=== PATIENT | female | born 1955 | race Caucasian/White ===

== ENCOUNTER 2020-11-16 11:55 | Emergency (ER) | payer MEDICARE, OTHER ==
[~2020-11-16 11:55] MED LIST: ADVAIR 250-501 EACH INH; ALDACTONE25 MG PO; AMOXICILLIN500 MG PO; AZITHROMYCIN250 MG PO; CERTAGEN1 EACH PO; MAG-OXIDE 400M400 MG PO; MUCINEX 600MG600 MG PO; NEXIUM40 MG PO; NORCO 5-325 TA1 EACH PO; PERCOCET 10/321 EACH PO; PROZAC20 MG PO; TOPROL XL 25MG25 MG PO; TRAZODONE 100M100 MG PO; XANAX1 MG PO
[2020-11-16 13:48] LABS: BASOPHIL 0.7 % (0-2); EOSINOPHIL 1.7 % (0-7); HCT 36.3 % (37.0-47.0); HGB 11.6 g/dl (12.5-16.0); LYMPHOCYTE 12.5 % (15-48); MCH 30.4 pg (25.0-31.0); MONOCYTE 10.1 % (0-12); MPV 10.2 fL (6.0-9.5); NEUTROPHIL 74.7 % (41-80); NRBC 0; PLT 241 K/uL (150-400); RBC 3.82 M/uL (4.20-5.40); RDW 13.8 % (11.5-14.0); WBC 9.2 K/uL (4.0-10.5)
[2020-11-16 14:01] LABS: INR 1.02 (0.9-1.2); PROTHROMBIN TIME 12.7 SECONDS (11.4-13.6); PTT 26.6 SECONDS (22.2-34.7)
[2020-11-16 14:14] LABS: ALBUMIN 3.8 g/dL (3.4-5.0); BILIRUBIN - TOTAL 0.8 mg/dL (0.2-1.0); BUN/CREAT RATIO (CALC) 14.3 RATIO; CREATININE 0.91 mg/dL (0.51-0.95); POTASSIUM 4.7 mmol/L (3.5-5.1); TOTAL PROTEIN 7.8 g/dL (6.4-8.2)
== END 2020-11-16 14:23 | disposition home or self-care (01) ==
LOC: FER 11:55
PROVIDERS: Emergency Medicine
DX: L76.32 Postprocedural hematoma of skin and subcutaneous tissue following other procedure (principal); I10 Essential (primary) hypertension; J44.9 Chronic obstructive pulmonary disease, unspecified; Z88.2 Allergy status to sulfonamides; Z88.1 Allergy status to other antibiotic agents; Z88.8 Allergy status to other drugs, medicaments and biological substances; Y83.8 Other surgical procedures as the cause of abnormal reaction of the patient, or of later complication, without mention of misadventure at the time of the procedure; Z98.890 Other specified postprocedural states; M79.651 Pain in right thigh
CPT/HCPCS: 36415; 80053; 85025; 85610; 85730; 93971; J1170; J2550

== ENCOUNTER 2021-01-24 15:32 | Emergency (ER) | payer MEDICARE, OTHER ==
[2021-01-24 17:08] LABS: BASOPHIL 0.8 % (0-2); EOSINOPHIL 3.1 % (0-7); HCT 35.6 % (37.0-47.0); HGB 11.3 g/dl (12.5-16.0); LYMPHOCYTE 14.1 % (15-48); MCH 30.1 pg (25.0-31.0); MCHC 31.7 g/dL (32.0-36.0); MCV 94.9 fL (78.0-100.0); MPV 10.3 fL (6.0-9.5); NEUTROPHIL 70.5 % (41-80); NRBC 0; PLT 225 K/uL (150-400); RBC 3.75 M/uL (4.20-5.40); RDW 13.7 % (11.5-14.0); WBC 6.5 K/uL (4.0-10.5)
[2021-01-24 17:14] LABS: INR 0.96 (0.9-1.2); PROTHROMBIN TIME 12.1 SECONDS (11.4-13.6)
[2021-01-24 17:22] LABS: ALBUMIN 3.5 g/dL (3.4-5.0); BILIRUBIN - TOTAL 0.3 mg/dL (0.2-1.0); BUN/CREAT RATIO (CALC) 9.1 RATIO; CREATININE 0.99 mg/dL (0.51-0.95); POTASSIUM 4.3 mmol/L (3.5-5.1); TOTAL PROTEIN 6.5 g/dL (6.4-8.2)
== END 2021-01-24 21:08 | disposition other institution (70) ==
LOC: FER 15:32
PROVIDERS: Emergency Medicine
DX: I63.9 Cerebral infarction, unspecified (principal); R29.810 Facial weakness; I10 Essential (primary) hypertension; J44.9 Chronic obstructive pulmonary disease, unspecified; R00.0 Tachycardia, unspecified; Z87.19 Personal history of other diseases of the digestive system; Z88.1 Allergy status to other antibiotic agents; Z88.2 Allergy status to sulfonamides
CPT/HCPCS: 36415; 70450; 80053; 84484; 85025; 85610; 93005

== ENCOUNTER 2021-04-22 12:20 | Emergency (ER) | payer MEDICARE, OTHER ==
[2021-04-22 13:25] LABS: EOSINOPHIL 2.4 % (0-7); HCT 35.7 % (37.0-47.0); HGB 11.4 g/dl (12.5-16.0); LYMPHOCYTE 13.8 % (15-48); MCH 29.6 pg (25.0-31.0); MCHC 31.9 g/dL (32.0-36.0); MCV 92.7 fL (78.0-100.0); MPV 10.1 fL (6.0-9.5); NEUTROPHIL 69.3 % (41-80); NRBC 0; PLT 197 K/uL (150-400); RBC 3.85 M/uL (4.20-5.40); RDW 14.6 % (11.5-14.0); WBC 6.2 K/uL (4.0-10.5)
[2021-04-22 13:28] LABS: BILIRUBIN NEGATIVE (NEGATIVE); BLOOD NEGATIVE Ery/uL (NEGATIVE); CLARITY CLEAR (CLEAR); COLOR YELLOW (YELLOW); GLUCOSE (U) NORMAL (NORMAL); LEUKOCYTES NEGATIVE Leu/uL (NEGATIVE); NITRITE NEGATIVE (NEGATIVE); PROTEIN NEGATIVE (NEGATIVE); UROBILINOGEN 0.2 mg/dL (0.2-1.0)
[2021-04-22 13:40] LABS: ALBUMIN 3.4 g/dL (3.4-5.0); BILIRUBIN - TOTAL 0.4 mg/dL (0.2-1.0); CREATININE 0.85 mg/dL (0.51-0.95); GLOBULIN (CALCULATION) 3.5 g/dL; POTASSIUM 4.6 mmol/L (3.5-5.1); TOTAL PROTEIN 6.9 g/dL (6.4-8.2)
[2021-04-22] MEDS ORDERED: PREDNISONE 20MG20 MG PO (15:46)
[2021-04-22] MEDS ORDERED: AUGMENTIN 875-1 EACH PO (15:46)
== END 2021-04-22 16:32 | disposition home or self-care (01) ==
LOC: FER 12:20
PROVIDERS: Emergency Medicine
DX: J44.9 Chronic obstructive pulmonary disease, unspecified (principal); R04.2 Hemoptysis; I10 Essential (primary) hypertension; Z85.3 Personal history of malignant neoplasm of breast; Z87.891 Personal history of nicotine dependence; Z88.2 Allergy status to sulfonamides; Z88.1 Allergy status to other antibiotic agents; Z88.8 Allergy status to other drugs, medicaments and biological substances
CPT/HCPCS: 36415; 71275; 80053; 81003; 85025; 85379; 93005; J0696; J2930

== ENCOUNTER 2021-07-07 11:17 | Emergency (ER) | payer MEDICARE, OTHER ==
[~2021-07-07 11:17] MED LIST changes: +AUGMENTIN 875-1 EACH PO; +PREDNISONE 20MG20 MG PO
[2021-07-07 11:51] LABS: BASOPHIL 0.8 % (0-2); EOSINOPHIL 2.9 % (0-7); HGB 12.2 g/dl (12.5-16.0); LYMPHOCYTE 14.5 % (15-48); MCH 29.7 pg (25.0-31.0); MCHC 31.3 g/dL (32.0-36.0); MCV 94.9 fL (78.0-100.0); MONOCYTE 13.2 % (0-12); MPV 10.3 fL (6.0-9.5); NEUTROPHIL 68.1 % (41-80); NRBC 0; PLT 218 K/uL (150-400); RBC 4.11 M/uL (4.20-5.40); RDW 14.1 % (11.5-14.0); WBC 6.3 K/uL (4.0-10.5)
[2021-07-07 12:01] LABS: BUN/CREAT RATIO (CALC) 9.2 RATIO; CREATININE 1.09 mg/dL (0.51-0.95); POTASSIUM 4.8 mmol/L (3.5-5.1)
[2021-07-07 12:33] LABS: INR 0.94 (0.9-1.2); PTT 23.4 SECONDS (24.4-34.7)
== END 2021-07-07 14:30 | disposition home or self-care (01) ==
LOC: FER 11:17
PROVIDERS: Emergency Medicine
DX: R42 Dizziness and giddiness (principal); I10 Essential (primary) hypertension; J44.9 Chronic obstructive pulmonary disease, unspecified; Z88.1 Allergy status to other antibiotic agents; Z88.2 Allergy status to sulfonamides; Z88.6 Allergy status to analgesic agent
CPT/HCPCS: 36415; 70450; 80048; 85025; 85610; 85730; 93005

== ENCOUNTER 2022-03-07 10:40 | Emergency (ER) | payer MEDICARE, OTHER ==
[2022-03-07 12:17] LABS: BASOPHIL 0.7 % (0-2); EOSINOPHIL 2.5 % (0-7); HGB 11.5 g/dl (12.5-16.0); LYMPHOCYTE 13.8 % (15-48); MCH 29.5 pg (25.0-31.0); MCHC 31.1 g/dL (32.0-36.0); MCV 94.9 fL (78.0-100.0); MONOCYTE 10.3 % (0-12); MPV 10.5 fL (6.0-9.5); NEUTROPHIL 72.1 % (41-80); NRBC 0; PLT 196 K/uL (150-400); RDW 14.2 % (11.5-14.0); WBC 6.7 K/uL (4.0-10.5)
[2022-03-07 12:41] LABS: ALBUMIN 3.6 g/dL (3.4-5.0); BILIRUBIN - TOTAL 0.3 mg/dL (0.2-1.0); BUN/CREAT RATIO (CALC) 9.6 RATIO; CREATININE 1.04 mg/dL (0.51-0.95); GLOBULIN (CALCULATION) 3.5 g/dL; POTASSIUM 4.8 mmol/L (3.5-5.1); TOTAL PROTEIN 7.1 g/dL (6.4-8.2)
[2022-03-07 12:44] LABS: LACTIC ACID 0.8 mmol/L (0.4-1.9)
[2022-03-07 12:55] LABS: CORONAVIRUS 2019 SARS-COV-2 NEGATIVE (NEGATIVE); INFLUENZA A NAA NEGATIVE (NEGATIVE)
[2022-03-07] MEDS ORDERED: PREDNISONE 20MG20 MG PO (13:25)
[2022-03-07] MEDS ORDERED: LEVAQUIN500 MG PO (13:25)
== END 2022-03-07 13:50 | disposition home or self-care (01) ==
LOC: FER 10:40
PROVIDERS: Emergency Medicine
DX: J44.1 Chronic obstructive pulmonary disease with (acute) exacerbation (principal); J18.9 Pneumonia, unspecified organism; K21.9 Gastro-esophageal reflux disease without esophagitis; I10 Essential (primary) hypertension; Z88.2 Allergy status to sulfonamides; Z87.891 Personal history of nicotine dependence; Z88.8 Allergy status to other drugs, medicaments and biological substances; Z79.899 Other long term (current) drug therapy; Z79.82 Long term (current) use of aspirin; Z79.02 Long term (current) use of antithrombotics/antiplatelets; Z20.822 Contact with and (suspected) exposure to COVID-19
CPT/HCPCS: 36415; 36600; 71045; 80053; 82803; 83605; 83880; 84145; 84484; 85025; 87040; 93005; 94640; J2930; U0002

== ENCOUNTER 2022-06-22 09:36 | Emergency (ER) | payer MEDICARE, OTHER ==
[~2022-06-22 09:36] MED LIST changes: +LEVAQUIN500 MG PO
[2022-06-22] MEDS ORDERED: LEVAQUIN500 MG PO (10:46)
== END 2022-06-22 10:59 | disposition home or self-care (01) ==
LOC: FER 09:36
DX: J42 Unspecified chronic bronchitis (principal); Z88.2 Allergy status to sulfonamides; Z88.1 Allergy status to other antibiotic agents; Z88.8 Allergy status to other drugs, medicaments and biological substances; Z87.891 Personal history of nicotine dependence
CPT/HCPCS: 71046

== ENCOUNTER 2022-07-19 12:05 | Emergency (ER) | payer MEDICARE, OTHER ==
[2022-07-19 12:35] LABS: BASOPHIL 0.8 % (0-2); EOSINOPHIL 1.5 % (0-7); HCT 38.3 % (37.0-47.0); HGB 12.3 g/dl (12.5-16.0); LYMPHOCYTE 12.4 % (15-48); MCH 30.5 pg (25.0-31.0); MCHC 32.1 g/dL (32.0-36.0); MONOCYTE 10.8 % (0-12); MPV 10.4 fL (6.0-9.5); NEUTROPHIL 73.9 % (41-80); NRBC 0; PLT 205 K/uL (150-400); RBC 4.03 M/uL (4.20-5.40); RDW 14.2 % (11.5-14.0); WBC 7.8 K/uL (4.0-10.5)
[2022-07-19 12:49] LABS: ALBUMIN 3.7 g/dL (3.4-5.0); BILIRUBIN - TOTAL 0.5 mg/dL (0.2-1.0); BUN/CREAT RATIO (CALC) 11.9 RATIO; CREATININE 1.01 mg/dL (0.51-0.95); GLOBULIN (CALCULATION) 3.3 g/dL; POTASSIUM 4.7 mmol/L (3.5-5.1)
== END 2022-07-19 17:07 | disposition home or self-care (01) ==
LOC: FER 12:05
PROVIDERS: Emergency Medicine
DX: S82.455A Nondisplaced comminuted fracture of shaft of left fibula, initial encounter for closed fracture (principal); I10 Essential (primary) hypertension; Z88.2 Allergy status to sulfonamides; Z88.8 Allergy status to other drugs, medicaments and biological substances; Z88.1 Allergy status to other antibiotic agents; Z79.02 Long term (current) use of antithrombotics/antiplatelets; Z79.82 Long term (current) use of aspirin; V43.52XA Car driver injured in collision with other type car in traffic accident, initial encounter
CPT/HCPCS: 36415; 70450; 71045; 72125; 72131; 73130; 73590; 80053; 85025; J2270; J2550